=== PATIENT | male | born 1980 | race Caucasian/White ===

== ENCOUNTER → 2017-03-27 | Outpatient (CLI) | payer MEDICAID ==
[~2017-03-27] MED LIST: ATOR10TA PO; LAMO5TB. PO; propanolol PO
== END | disposition home or self-care (01) ==
LOC: RAD 10:07
PROVIDERS: ATTEND Anesthesiology
DX: M41.84 Other forms of scoliosis, thoracic region (principal); M54.2 Cervicalgia; A52.16 Charcot's arthropathy (tabetic)
CPT/HCPCS: 72072

== ENCOUNTER → 2017-05-23 | Outpatient (CLI) | payer MEDICAID | END | disposition home or self-care (01) | LOC: CFH 12:15 | PROVIDERS: ATTEND Nurse Practitioner Family | DX: M50.30 Other cervical disc degeneration, unspecified cervical region (principal); M47.892 Other spondylosis, cervical region; G93.5 Compression of brain; J32.0 Chronic maxillary sinusitis; M47.896 Other spondylosis, lumbar region; M51.36 Other intervertebral disc degeneration, lumbar region | CPT/HCPCS: 70551; 72050; 72114; 72141; 72148 ==